=== PATIENT | female | born 1940 | race Two or more races ===

== ENCOUNTER 2017-11-27 10:44 | Outpatient (CLI) | payer OTHER ==
[~2017-11-27 10:44] MED LIST: KEFLEX500 MG PO; ULTRACET PO
== END 2017-11-27 12:04 | disposition home or self-care (01) ==
LOC: MAMO-SONO 10:44
DX: N64.89 Other specified disorders of breast (principal)

== ENCOUNTER 2017-12-22 09:48 | Outpatient (CLI) | payer OTHER | END 2017-12-22 10:00 | disposition home or self-care (01) | LOC: NUCLEAR 09:48 | DX: M81.0 Age-related osteoporosis without current pathological fracture (principal) ==

== ENCOUNTER → 2018-01-25 | Outpatient (CLI) | payer OTHER | END | disposition home or self-care (01) | LOC: SONOGRAMA 13:37 | DX: N60.11 Diffuse cystic mastopathy of right breast (principal); N60.12 Diffuse cystic mastopathy of left breast; N63.24 Unspecified lump in the left breast, lower inner quadrant ==

== ENCOUNTER 2018-10-25 09:08 | Outpatient (CLI) | payer OTHER | END 2018-10-26 06:43 | disposition home or self-care (01) | LOC: SONOGRAMA 09:08 → MAMO-SONO 09:15 → SONOGRAMA 10-26 06:43 | DX: N60.11 Diffuse cystic mastopathy of right breast (principal); N60.12 Diffuse cystic mastopathy of left breast ==

== ENCOUNTER 2019-12-01 09:38 | Outpatient (CLI) | payer OTHER | END 2019-12-01 10:00 | disposition home or self-care (01) | LOC: MAMO-SONO 09:38 | DX: N60.11 Diffuse cystic mastopathy of right breast (principal); N60.12 Diffuse cystic mastopathy of left breast; Z12.31 Encounter for screening mammogram for malignant neoplasm of breast; Z87.898 Personal history of other specified conditions ==

== ENCOUNTER 2020-10-10 09:01 | Outpatient (CLI) | payer OTHER | END 2020-10-10 09:13 | disposition home or self-care (01) | LOC: SONOGRAMA 09:01 → MAMO-SONO 09:15 | PROVIDERS: ATTEND Surgery | DX: D24.1 Benign neoplasm of right breast (principal); D24.2 Benign neoplasm of left breast; N60.11 Diffuse cystic mastopathy of right breast; N60.12 Diffuse cystic mastopathy of left breast ==

== ENCOUNTER 2020-10-26 13:17 | Outpatient (CLI) | payer OTHER | END 2020-10-26 13:30 | disposition home or self-care (01) | LOC: NUCLEAR 13:17 | PROVIDERS: ATTEND Internal Medicine | DX: M81.0 Age-related osteoporosis without current pathological fracture (principal) ==

== ENCOUNTER 2022-01-15 11:25 | Outpatient (CLI) | payer OTHER | END 2022-01-15 11:30 | disposition home or self-care (01) | LOC: SONOGRAMA 11:25 | PROVIDERS: ATTEND Internal Medicine | DX: N18.9 Chronic kidney disease, unspecified (principal); R80.9 Proteinuria, unspecified ==

== ENCOUNTER 2022-08-28 12:48 | Outpatient (CLI) | payer OTHER | END 2022-08-28 13:01 | disposition home or self-care (01) | LOC: RAD 12:48 | PROVIDERS: ATTEND Internal Medicine | DX: M54.50 Low back pain, unspecified (principal); M62.830 Muscle spasm of back ==